=== PATIENT | female | born 1940 | race Caucasian/White ===

== ENCOUNTER 2020-10-29 11:25 | Inpatient (IN) | payer OTHER ==
[2020-10-29 11:30] VITALS: BMI 27.4
[2020-10-29] MEDS ORDERED: SODIUM CHLORIDE 1,000 ML IV SCH (12:00)
[2020-10-29 12:22] LABS: EOS % 1.9 % (0-4.5); HEMATOCRIT 39.5 % (32.4-45.2); HEMOGLOBIN 13.4 GM/dL (10.7-15.3); LYMPH % 17.8 % (8-40); MCH 27.8 pg (25.7-33.7); MCHC 33.9 g/dl (32.0-36.0); MEAN CELL VOLUME 81.9 fl (80-96); MEAN PLT VOLUME 7.7 fl (7.5-11.1); MONO % 8.2 % (3.8-10.2); NEUT % 71.1 % (42.8-82.8); PLATELET COUNT 438 K/MM3 (134-434); RBC 4.82 M/mm3 (3.60-5.2); RDW 13.6 % (11.6-15.6)
[2020-10-29] MEDS ORDERED: ACETAMINOPHEN 1000 MG/100 ML VIAL (NON FORMULARY) IVPB ONE (12:27)
[2020-10-29] MEDS ORDERED: METOCLOPRAMIDE HCL INJECTION 10 MG/2 ML VIAL IVPB ONE (12:27)
[2020-10-29 12:42] LABS: CALCIUM 10.1 mg/dL (8.5-10.1)
[2020-10-29 12:43] LABS: ALBUMIN 3.4 g/dl (3.4-5.0); BLOOD UREA NITROGEN 50.3 mg/dL (7-18); CO2 30 mmol/L (21-32); GLUCOSE,RANDOM 102 mg/dL (74-106)
[2020-10-29 12:46] LABS: CHOLESTEROL 283 mg/dL (50-200); SGOT/AST 14 U/L (15-37); SGPT/ALT 23 U/L (13-61); TRIGLYCERIDES 233 mg/dL (0-150)
[2020-10-29 12:47] LABS: BILIRUBIN,TOTAL 0.5 mg/dL (0.2-1); LDL CHOLESTEROL (ONLY SJRH) 178 mg/dL (5-100); TOT PROT 7.1 g/dl (6.4-8.2)
[2020-10-29 12:48] LABS: ALK PHOS 96 U/L (45-117)
[2020-10-29 12:49] LABS: HDL CHOLESTEROL 54 mg/dL (40-60)
[2020-10-29 12:51] LABS: ANION GAP 8 MMOL/L (8-16); CHLORIDE 100 mmol/L (98-107); POTASSIUM 3.7 mmol/L (3.5-5.1); SODIUM 137 mmol/L (136-145)
[2020-10-29] MEDS ORDERED: METOCLOPRAMIDE HCL INJECTION 10 MG/2 ML VIAL ONE (13:10)
[2020-10-29] MEDS ORDERED: ACETAMINOPHEN INJECTION 100 ML IVPB ONE (13:10)
[2020-10-29 13:31] LABS: INR 0.97 (0.83-1.09); PROTHROMBIN TIME (PATIENT) 11.8 SEC (9.7-13.0)
[2020-10-29 13:34] LABS: ACTIVATED PTT 27.6 SECONDS (25.2-36.5)
[2020-10-29 15:18] LABS: EPI CELLS 30 /uL (0-25.1); HYALINE CASTS 0 /uL (0-3.1); URINE APPEARANCE CLEAR; URINE BACTERIA 187 /uL (0-1359); URINE BILIRUBIN NEGATIVE (NEGATIVE); URINE COLOR YELLOW; URINE GLUCOSE (UA) NEGATIVE (NEGATIVE); URINE KETONE NEGATIVE (NEGATIVE); URINE LEUK ESTERASE 1+ (NEGATIVE); URINE NITRITE NEGATIVE (NEGATIVE); URINE PROTEIN NEGATIVE (NEGATIVE); URINE RBC 6 /uL (0-23.9); URINE UROBILINOGEN 0.2 mg/dL (0.2-1.0); URINE WBC 45 /uL (0-25.8)
[2020-10-29] MEDS ORDERED: CLOPIDOGREL BISULFATE 75 MG TABLET (FP) PO ONE (21:40)
[2020-10-29] MEDS ORDERED: ASPIRIN 81 MG CHEWABLE TABLETS PO ONE (21:40)
[2020-10-29] MEDS ORDERED: ASPIRIN 81 MG CHEWABLE TABLETS ONE (22:07)
[2020-10-29] MEDS ORDERED: CLOPIDOGREL BISULFATE 75 MG TABLET (FP) ONE (22:07)
[2020-10-29] MEDS ORDERED: ATORVASTATIN CA 40 MG TABLET (FP) ONE (22:07)
[2020-10-29] MEDS: ATORVASTATIN CA 40 MG TABLET (FP) PO SCH (22:19)
[2020-10-29] MEDS: SODIUM CHLORIDE 1,000 ML IV SCH (22:19)
[2020-10-29 22:46] LABS: BASO % 0.7 % (0-2.0); HEMATOCRIT 36.2 % (32.4-45.2); HEMOGLOBIN 12.1 GM/dL (10.7-15.3); LYMPH % 19.5 % (8-40); MCH 27.8 pg (25.7-33.7); MCHC 33.5 g/dl (32.0-36.0); MEAN PLT VOLUME 8.1 fl (7.5-11.1); MONO % 8.4 % (3.8-10.2); NEUT % 69.4 % (42.8-82.8); PLATELET COUNT 403 K/MM3 (134-434); RBC 4.36 M/mm3 (3.60-5.2); RDW 13.8 % (11.6-15.6)
[2020-10-29 22:54] LABS: INR 0.95 (0.83-1.09); PROTHROMBIN TIME (PATIENT) 11.7 SEC (9.7-13.0)
[2020-10-29 22:57] LABS: ACTIVATED PTT 24.5 SECONDS (25.2-36.5)
[2020-10-29 23:18] LABS: CHLORIDE 104 mmol/L (98-107); POTASSIUM 3.7 mmol/L (3.5-5.1); SODIUM 141 mmol/L (136-145)
[2020-10-29 23:20] LABS: CALCIUM 9.4 mg/dL (8.5-10.1)
[2020-10-29 23:21] LABS: ALBUMIN 3.2 g/dl (3.4-5.0); ANION GAP 8 MMOL/L (8-16); BLOOD UREA NITROGEN 48.2 mg/dL (7-18); CO2 29 mmol/L (21-32); GLUCOSE,RANDOM 100 mg/dL (74-106)
[2020-10-29 23:24] LABS: CREATININE 1.1 mg/dL (0.55-1.3); SGOT/AST 13 U/L (15-37); SGPT/ALT 20 U/L (13-61)
[2020-10-29 23:25] LABS: BILIRUBIN,TOTAL 0.5 mg/dL (0.2-1); CHOLESTEROL 249 mg/dL (50-200); TOT PROT 6.3 g/dl (6.4-8.2); TRIGLYCERIDES 169 mg/dL (0-150)
[2020-10-29 23:26] LABS: HDL CHOLESTEROL 50 mg/dL (40-60); LDL CHOLESTEROL (ONLY SJRH) 152 mg/dL (5-100)
[2020-10-29 23:27] LABS: ALK PHOS 87 U/L (45-117)
[2020-10-30 00:36] LABS: EPI CELLS 19 /uL (0-25.1); HYALINE CASTS 1 /uL (0-3.1); URINE APPEARANCE CLEAR; URINE BACTERIA 142 /uL (0-1359); URINE BILIRUBIN NEGATIVE (NEGATIVE); URINE COLOR YELLOW; URINE GLUCOSE (UA) NEGATIVE (NEGATIVE); URINE KETONE NEGATIVE (NEGATIVE); URINE LEUK ESTERASE 1+ (NEGATIVE); URINE NITRITE NEGATIVE (NEGATIVE); URINE PROTEIN NEGATIVE (NEGATIVE); URINE RBC 5 /uL (0-23.9); URINE UROBILINOGEN 0.2 mg/dL (0.2-1.0); URINE WBC 57 /uL (0-25.8)
[2020-10-30 06:59] LABS: HEMATOCRIT 36.5 % (32.4-45.2); HEMOGLOBIN 12.5 GM/dL (10.7-15.3); LYMPH % 19.6 % (8-40); MCH 28.1 pg (25.7-33.7); MCHC 34.3 g/dl (32.0-36.0); MEAN CELL VOLUME 81.8 fl (80-96); MEAN PLT VOLUME 7.9 fl (7.5-11.1); MONO % 7.1 % (3.8-10.2); NEUT % 70.3 % (42.8-82.8); PLATELET COUNT 391 K/MM3 (134-434); RBC 4.46 M/mm3 (3.60-5.2); RDW 13.8 % (11.6-15.6); WHITE BLOOD COUNT 8.2 K/mm3 (4.0-10.0)
[2020-10-30 07:19] LABS: POTASSIUM 3.8 mmol/L (3.5-5.1)
[2020-10-30 07:22] LABS: CALCIUM 9.4 mg/dL (8.5-10.1)
[2020-10-30 07:23] LABS: ALBUMIN 3.2 g/dl (3.4-5.0); BLOOD UREA NITROGEN 42.6 mg/dL (7-18); MAGNESIUM 1.7 mg/dL (1.8-2.4)
[2020-10-30 07:26] LABS: CREATININE 0.9 mg/dL (0.55-1.3); PHOSPHOROUS 3.5 mg/dL (2.5-4.9)
[2020-10-30 07:27] LABS: BILIRUBIN,TOTAL 0.5 mg/dL (0.2-1); TOT PROT 6.3 g/dl (6.4-8.2)
[2020-10-30] MEDS ORDERED: HYDROCHLOROTHIAZIDE 12.5 MG CAPSULE (FP) PO SCH (10:00)
[2020-10-30] MEDS ORDERED: ENOXAPARIN NA (PORCINE) 40 MG/0.4 ML DISP.SYRIN SQ SCH (10:00)
[2020-10-30] MEDS ORDERED: PATIENT'S OWN MEDICATION (NON-FORMULARY) (Candesartan/Hydrochlorothiazid [Candesartan-Hctz PO SCH (10:00)
[2020-10-30] MEDS ORDERED: MULTIVITAMINS (DAILY MVI) TABLET (FP) ONE (10:14)
[2020-10-30] MEDS ORDERED: CLOPIDOGREL BISULFATE 75 MG TABLET (FP) ONE (10:15)
[2020-10-30] MEDS ORDERED: METOPROLOL TARTRATE 50 MG TABLET (FP) ONE (10:15)
[2020-10-30] MEDS ORDERED: ASPIRIN 81 MG CHEWABLE TABLETS ONE (10:15)
[2020-10-30] MEDS: ASPIRIN 81 MG CHEWABLE TABLETS PO SCH (11:25)
[2020-10-30] MEDS: METOPROLOL TARTRATE 50 MG TABLET (FP) PO SCH (11:29)
[2020-10-30] MEDS: VALSARTAN 160 MG TABLET PO SCH (11:29)
[2020-10-30] MEDS: MULTIVITAMINS (DAILY MVI) TABLET (FP) PO SCH (11:31)
[2020-10-30] MEDS: CLOPIDOGREL BISULFATE 75 MG TABLET (FP) PO SCH (12:15)
[2020-10-30] MEDS ORDERED: MAGNESIUM SULF 50% (8.12 MEQ/2 ML-1 GM VIAL) IVPB ONE (14:51)
[2020-10-30] MEDS ORDERED: LORazepam 1 MG TABLET PO ONE (17:00)
[2020-10-30] MEDS: SODIUM CHLORIDE 1,000 ML IV SCH ×2 (17:18→21:20)
[2020-10-30] MEDS: ATORVASTATIN CA 40 MG TABLET (FP) PO SCH (21:18)
[2020-10-31 08:08] LABS: HEMATOCRIT 33.6 % (32.4-45.2); HEMOGLOBIN 11.4 GM/dL (10.7-15.3); MCHC 34.1 g/dl (32.0-36.0); MEAN CELL VOLUME 82.1 fl (80-96); MEAN PLT VOLUME 7.8 fl (7.5-11.1); PLATELET COUNT 384 K/MM3 (134-434); RBC 4.09 M/mm3 (3.60-5.2); RDW 13.8 % (11.6-15.6); WHITE BLOOD COUNT 7.6 K/mm3 (4.0-10.0)
[2020-10-31 08:21] LABS: POTASSIUM 3.6 mmol/L (3.5-5.1)
[2020-10-31 08:41] LABS: BLOOD UREA NITROGEN 33.6 mg/dL (7-18); CALCIUM 8.9 mg/dL (8.5-10.1); MAGNESIUM 1.8 mg/dL (1.8-2.4)
[2020-10-31 08:44] LABS: CREATININE 0.7 mg/dL (0.55-1.3); PHOSPHOROUS 2.5 mg/dL (2.5-4.9)
[2020-10-31] MEDS: CLOPIDOGREL BISULFATE 75 MG TABLET (FP) PO SCH (09:03)
[2020-10-31] MEDS: VALSARTAN 160 MG TABLET PO SCH (09:03)
[2020-10-31] MEDS: ASPIRIN 81 MG CHEWABLE TABLETS PO SCH (09:03)
[2020-10-31] MEDS: MULTIVITAMINS (DAILY MVI) TABLET (FP) PO SCH (09:04)
[2020-10-31] MEDS: METOPROLOL TARTRATE 50 MG TABLET (FP) PO SCH (09:04)
[2020-10-31] MEDS ORDERED: MAGNESIUM OXIDE 400 MG TABLET (FP) PO ONE (10:00)
[2020-10-31] MEDS: ATORVASTATIN CA 40 MG TABLET (FP) PO SCH (21:10)
[2020-11-01 06:19] VITALS: TEMP 98.2
[2020-11-01 08:03] VITALS: BP 122/53; PULSE 64
[2020-11-01 08:14] LABS: HEMATOCRIT 33.3 % (32.4-45.2); HEMOGLOBIN 11.2 GM/dL (10.7-15.3); MCH 27.8 pg (25.7-33.7); MCHC 33.6 g/dl (32.0-36.0); MEAN CELL VOLUME 82.8 fl (80-96); MEAN PLT VOLUME 8.1 fl (7.5-11.1); PLATELET COUNT 369 K/MM3 (134-434); RBC 4.02 M/mm3 (3.60-5.2); RDW 14.1 % (11.6-15.6); WHITE BLOOD COUNT 8.4 K/mm3 (4.0-10.0)
[2020-11-01 08:40] LABS: POTASSIUM 4.2 mmol/L (3.5-5.1)
[2020-11-01 08:46] LABS: CALCIUM 9.4 mg/dL (8.5-10.1)
[2020-11-01 08:47] LABS: BLOOD UREA NITROGEN 26.9 mg/dL (7-18); MAGNESIUM 1.8 mg/dL (1.8-2.4)
[2020-11-01 08:50] LABS: CREATININE 0.8 mg/dL (0.55-1.3)
[2020-11-01 08:51] LABS: PHOSPHOROUS 3.2 mg/dL (2.5-4.9)
[2020-11-01] MEDS: VALSARTAN 160 MG TABLET PO SCH (09:05)
[2020-11-01] MEDS: METOPROLOL TARTRATE 50 MG TABLET (FP) PO SCH (09:05)
[2020-11-01] MEDS: ASPIRIN 81 MG CHEWABLE TABLETS PO SCH (09:05)
[2020-11-01] MEDS: CLOPIDOGREL BISULFATE 75 MG TABLET (FP) PO SCH (09:05)
[2020-11-01] MEDS: MULTIVITAMINS (DAILY MVI) TABLET (FP) PO SCH (09:05)
== END 2020-11-01 11:31 | disposition home or self-care (01) | DRG 66 ==
LOC: JER 11:25 → JERBED 14:10 → J4W 10-30 16:09
PROVIDERS: ADMIT Internal Medicine; ATTEND Internal Medicine
DX: I63.232 Cerebral infarction due to unspecified occlusion or stenosis of left carotid arteries (principal); I10 Essential (primary) hypertension; E78.5 Hyperlipidemia, unspecified; I25.10 Atherosclerotic heart disease of native coronary artery without angina pectoris; D32.9 Benign neoplasm of meninges, unspecified; F17.210 Nicotine dependence, cigarettes, uncomplicated; R47.81 Slurred speech; R29.810 Facial weakness; R29.708 NIHSS score 8
CPT/HCPCS: 36415; 70450-TC; 70498-TC; 70551-TC; 71045-TC-FY; 80048; 80053; 80061; 81003; 82550; 83036; 83721; 83735; 84100; 84443; 84484; 85025; 85027; 85610; 85730; 86850; 86900; 86901; 93005; 93010; 93306-TC; 93880-TC; 94010; 97116-GP; 97161-GP; 99285-25; C9803; J0131; Q9967; U0003

== ENCOUNTER 2022-05-26 18:35 | Inpatient (IN) | payer OTHER ==
[2022-05-26] MEDS ORDERED: DEXAMETHASONE SOD PHOSPHATE 10 MG/1 ML VIAL IVPUSH ONE (21:14)
[2022-05-26 21:35] LABS: VENOUS BASE EXCESS -2.5 mmol/L (-2-2); VENOUS O2 SATURATION 80.1 % (70-80); VENOUS PCO2 39.7 mmHg (38-52); VENOUS PH 7.372 (7.310-7.410)
[2022-05-26 21:37] LABS: BASO % 1.4 % (0-2.0); EOS % 0.4 % (0-4.5); HEMATOCRIT 17.9 % (32.4-45.2); LYMPH % 14.1 % (8-40); MCHC 28.7 g/dl (32.0-36.0); MEAN CELL VOLUME 63.5 fl (80-96); MEAN PLT VOLUME 6.7 fl (7.5-11.1); MONO % 11.2 % (3.8-10.2); NEUT % 72.9 % (42.8-82.8); PLATELET COUNT 387 10^3/uL (134-434); RBC 2.82 M/mm3 (3.60-5.2); RDW 21.7 % (11.6-15.6); WHITE BLOOD COUNT 5.7 K/mm3 (4.0-10.0)
[2022-05-26 21:38] LABS: MCH 18.2 pg (25.7-33.7)
[2022-05-26 21:39] LABS: HEMOGLOBIN 5.1 GM/dL (10.7-15.3)
[2022-05-26] MEDS ORDERED: DEXAMETHASONE SOD PHOSPHATE 10 MG/1 ML VIAL ONE (21:52)
[2022-05-26 21:53] LABS: CHLORIDE 104 mmol/L (98-107); SODIUM 138 mmol/L (136-145)
[2022-05-26 21:55] LABS: CALCIUM 8.4 mg/dL (8.5-10.1)
[2022-05-26 21:56] LABS: ALBUMIN 2.9 g/dl (3.4-5.0); ANION GAP 11 MMOL/L (8-16); BLOOD UREA NITROGEN 40.8 mg/dL (7-18); CO2 23 mmol/L (21-32); GLUCOSE,RANDOM 97 mg/dL (74-106)
[2022-05-26 21:59] LABS: CREATININE 1.1 mg/dL (0.55-1.3); SGOT/AST 93 U/L (15-37); SGPT/ALT 114 U/L (13-61)
[2022-05-26 22:00] LABS: BILIRUBIN,TOTAL 0.6 mg/dL (0.2-1); TOT PROT 5.9 g/dl (6.4-8.2)
[2022-05-26 22:02] LABS: ALK PHOS 171 U/L (45-117)
[2022-05-26 22:04] LABS: N-TERMINAL BNP 3860.7 pg/ml (5-450)
[2022-05-26 22:22] LABS: ACTIVATED PTT 25.8 SECONDS (25.2-36.5); INR 1.32 (0.83-1.09); PROTHROMBIN TIME (PATIENT) 15.2 SEC (9.7-13.0)
[2022-05-26 22:31] LABS: ANISOCYTOSIS 3+; MACROCYTOSIS 0; OVALOCYTE 1+; TARGET CELLS 2+
[2022-05-27] MEDS ORDERED: LEVALBUTEROL HCL 0.31 MG/3 ML VIAL.NEB IH PRN (00:38)
[2022-05-27] MEDS ORDERED: FUROSEMIDE 40 MG/4 ML INJECTABLE VIAL IVPUSH ONE (00:38)
[2022-05-27] MEDS ORDERED: REMDESIVIR 200 MG in SODIUM CHLORIDE 250 ML IVPB ONE (00:38)
[2022-05-27 00:56] LABS: RETICULOCYTES 3.72 % (0.5-1.5)
[2022-05-27 01:51] LABS: IRON SERUM 11 ug/dL (50-175)
[2022-05-27 01:52] LABS: TOTAL IRON BINDING CAPACITY 474 ug/dL (250-450)
[2022-05-27] MEDS ORDERED: PANTOPRAZOLE SODIUM 40 MG VIAL IVPUSH ONE (04:50)
[2022-05-27 05:50] LABS: EPI CELLS 21 /uL (0-25.1); HYALINE CASTS 0 /uL (0-3.1); URINE APPEARANCE CLEAR; URINE BACTERIA 14 /uL (0-1359); URINE BILIRUBIN NEGATIVE (NEGATIVE); URINE COLOR YELLOW; URINE GLUCOSE (UA) NEGATIVE (NEGATIVE); URINE KETONE NEGATIVE (NEGATIVE); URINE LEUK ESTERASE 1+ (NEGATIVE); URINE NITRITE NEGATIVE (NEGATIVE); URINE PROTEIN 1+ (NEGATIVE); URINE RBC 3 /uL (0-23.9); URINE UROBILINOGEN 0.2 mg/dL (0.2-1.0); URINE WBC 18 /uL (0-25.8)
[2022-05-27] MEDS ORDERED: PANTOPRAZOLE SODIUM 40 MG VIAL ONE ×2 (07:40→10:28)
[2022-05-27 08:19] LABS: BASO % 0.6 % (0-2.0); HEMATOCRIT 27.8 % (32.4-45.2); HEMOGLOBIN 8.7 GM/dL (10.7-15.3); LYMPH % 4.4 % (8-40); MCHC 31.4 g/dl (32.0-36.0); MEAN PLT VOLUME 7.1 fl (7.5-11.1); MONO % 5.2 % (3.8-10.2); NEUT % 89.8 % (42.8-82.8); PLATELET COUNT 375 10^3/uL (134-434); RBC 3.96 M/mm3 (3.60-5.2); RDW 25.5 % (11.6-15.6); WHITE BLOOD COUNT 5.1 K/mm3 (4.0-10.0)
[2022-05-27] MEDS ORDERED: IRON SUCROSE INJECTION 200 MG in SODIUM CHLORIDE 90 ML IVPB ONE (09:06)
[2022-05-27] MEDS ORDERED: HYDROCHLOROTHIAZIDE 12.5 MG CAPSULE (FP) PO SCH (10:00)
[2022-05-27] MEDS ORDERED: PATIENT'S OWN MEDICATION (NON-FORMULARY) (Candesartan/Hydrochlorothiazid [Candesartan-Hctz PO SCH (10:00)
[2022-05-27] MEDS ORDERED: HYDROCHLOROTHIAZIDE 25 MG TABLET (FP) ONE (10:25)
[2022-05-27] MEDS ORDERED: VALSARTAN 80 MG TABLET ONE (10:26)
[2022-05-27] MEDS ORDERED: DEXAMETHASONE SOD PHOSPHATE 10 MG/1 ML VIAL ONE (10:26)
[2022-05-27] MEDS ORDERED: amLODIPine BESYLATE 2.5 MG TABLET (FP) ONE (10:26)
[2022-05-27] MEDS ORDERED: METOPROLOL TARTRATE 50 MG TABLET (FP) ONE (10:26)
[2022-05-27] MEDS ORDERED: CEFTRIAXONE 1 GM/50 ML BAG ONE (10:27)
[2022-05-27] MEDS: DEXAMETHASONE SOD PHOSPHATE 10 MG/1 ML VIAL IVPUSH SCH (10:44)
[2022-05-27] MEDS: CEFTRIAXONE 1 GM in DEXTROSE 5%-WATER - 50 ML IVPB SCH (10:45)
[2022-05-27] MEDS: amLODIPine BESYLATE 2.5 MG TABLET (FP) PO SCH (10:45)
[2022-05-27] MEDS: VALSARTAN 160 MG TABLET PO SCH (10:45)
[2022-05-27] MEDS: METOPROLOL TARTRATE 50 MG TABLET (FP) PO SCH (10:45)
[2022-05-27] MEDS: PANTOPRAZOLE SODIUM 40 MG VIAL IVPUSH SCH ×2 (10:45→22:09)
[2022-05-27 10:59] LABS: ALBUMIN 3.2 g/dl (3.4-5.0); BLOOD UREA NITROGEN 36.8 mg/dL (7-18); CALCIUM 8.8 mg/dL (8.5-10.1); MAGNESIUM 1.9 mg/dL (1.8-2.4)
[2022-05-27 11:02] LABS: CREATININE 1.1 mg/dL (0.55-1.3); PHOSPHOROUS 3.6 mg/dL (2.5-4.9)
[2022-05-27 11:04] LABS: BILIRUBIN,TOTAL 1.8 mg/dL (0.2-1); TOT PROT 6.3 g/dl (6.4-8.2)
[2022-05-27 12:41] LABS: BILIRUBIN,DIRECT 0.6 mg/dL (0.0-0.2)
[2022-05-27] MEDS: ATORVASTATIN CA 40 MG TABLET (FP) PO SCH (22:09)
[2022-05-27 23:16] VITALS: BMI 27.1
[2022-05-27] MEDS ORDERED: diphenhydrAMINE HCL 25 MG CAPSULE (FP) PO ONE (23:51)
[2022-05-28 07:50] LABS: BASO % 0.3 % (0-2.0); HEMATOCRIT 26.8 % (32.4-45.2); HEMOGLOBIN 8.2 GM/dL (10.7-15.3); LYMPH % 5.5 % (8-40); MCH 21.3 pg (25.7-33.7); MCHC 30.4 g/dl (32.0-36.0); MEAN CELL VOLUME 70.1 fl (80-96); MEAN PLT VOLUME 7.9 fl (7.5-11.1); MONO % 9.4 % (3.8-10.2); NEUT % 84.8 % (42.8-82.8); PLATELET COUNT 352 10^3/uL (134-434); RBC 3.83 M/mm3 (3.60-5.2); RDW 25.2 % (11.6-15.6); WHITE BLOOD COUNT 7.7 K/mm3 (4.0-10.0)
[2022-05-28 08:35] LABS: ALBUMIN 2.7 g/dl (3.4-5.0); CALCIUM 8.6 mg/dL (8.5-10.1)
[2022-05-28 08:36] LABS: MAGNESIUM 1.9 mg/dL (1.8-2.4)
[2022-05-28 08:39] LABS: BILIRUBIN,TOTAL 0.7 mg/dL (0.2-1); TOT PROT 5.4 g/dl (6.4-8.2)
[2022-05-28] MEDS: MULTIVITAMINS (DAILY MVI) TABLET (FP) PO SCH (10:27)
[2022-05-28] MEDS: METOPROLOL TARTRATE 50 MG TABLET (FP) PO SCH (10:27)
[2022-05-28] MEDS: CEFTRIAXONE 1 GM in DEXTROSE 5%-WATER - 50 ML IVPB SCH (10:27)
[2022-05-28] MEDS: VALSARTAN 160 MG TABLET PO SCH (10:27)
[2022-05-28] MEDS: PANTOPRAZOLE SODIUM 40 MG VIAL IVPUSH SCH ×2 (10:27→21:35)
[2022-05-28] MEDS: amLODIPine BESYLATE 2.5 MG TABLET (FP) PO SCH (10:27)
[2022-05-28] MEDS: DEXAMETHASONE SOD PHOSPHATE 10 MG/1 ML VIAL IVPUSH SCH (10:27)
[2022-05-28] MEDS ORDERED: IRON SUCROSE INJECTION 200 MG in SODIUM CHLORIDE 90 ML IVPB ONE (14:00)
[2022-05-28] MEDS: diphenhydrAMINE HCL 25 MG CAPSULE (FP) PO PRN (17:44)
[2022-05-28] MEDS: ATORVASTATIN CA 40 MG TABLET (FP) PO SCH (21:35)
[2022-05-29 07:19] LABS: BASO % 0.1 % (0-2.0); HEMATOCRIT 27.9 % (32.4-45.2); HEMOGLOBIN 8.3 GM/dL (10.7-15.3); LYMPH % 6.6 % (8-40); MCH 21.2 pg (25.7-33.7); MCHC 29.9 g/dl (32.0-36.0); MEAN CELL VOLUME 70.8 fl (80-96); MEAN PLT VOLUME 8.1 fl (7.5-11.1); MONO % 8.3 % (3.8-10.2); PLATELET COUNT 372 10^3/uL (134-434); RBC 3.93 M/mm3 (3.60-5.2); RDW 26.3 % (11.6-15.6); WHITE BLOOD COUNT 8.2 K/mm3 (4.0-10.0)
[2022-05-29 07:44] LABS: ALBUMIN 2.8 g/dl (3.4-5.0); CALCIUM 8.9 mg/dL (8.5-10.1)
[2022-05-29 07:46] LABS: MAGNESIUM 1.9 mg/dL (1.8-2.4)
[2022-05-29 07:48] LABS: BILIRUBIN,TOTAL 0.4 mg/dL (0.2-1); CREATININE 1.2 mg/dL (0.55-1.3)
[2022-05-29 07:49] LABS: TOT PROT 5.6 g/dl (6.4-8.2)
[2022-05-29] MEDS: CEFTRIAXONE 1 GM in DEXTROSE 5%-WATER - 50 ML IVPB SCH (10:19)
[2022-05-29] MEDS: VALSARTAN 160 MG TABLET PO SCH (10:19)
[2022-05-29] MEDS: PANTOPRAZOLE SODIUM 40 MG VIAL IVPUSH SCH ×3 (10:19→21:19)
[2022-05-29] MEDS: DEXAMETHASONE SOD PHOSPHATE 10 MG/1 ML VIAL IVPUSH SCH (10:19)
[2022-05-29] MEDS: MULTIVITAMINS (DAILY MVI) TABLET (FP) PO SCH (10:20)
[2022-05-29] MEDS: amLODIPine BESYLATE 2.5 MG TABLET (FP) PO SCH (10:20)
[2022-05-29] MEDS: METOPROLOL TARTRATE 50 MG TABLET (FP) PO SCH (10:20)
[2022-05-29] MEDS: guaiFENesin 200 MG/10 ML 10 ML UNIT-DOSE CUPS PO PRN ×2 (13:16→20:44)
[2022-05-29] MEDS: ATORVASTATIN CA 40 MG TABLET (FP) PO SCH ×2 (20:44→21:19)
[2022-05-30 07:31] LABS: BASO % 0.1 % (0-2.0); EOS % 0.1 % (0-4.5); HEMATOCRIT 27.2 % (32.4-45.2); HEMOGLOBIN 8.4 GM/dL (10.7-15.3); LYMPH % 7.6 % (8-40); MCH 22.1 pg (25.7-33.7); MCHC 30.9 g/dl (32.0-36.0); MEAN CELL VOLUME 71.4 fl (80-96); MEAN PLT VOLUME 8.2 fl (7.5-11.1); MONO % 8.3 % (3.8-10.2); NEUT % 83.9 % (42.8-82.8); PLATELET COUNT 330 10^3/uL (134-434); RDW 27.2 % (11.6-15.6); WHITE BLOOD COUNT 8.6 K/mm3 (4.0-10.0)
[2022-05-30 07:55] LABS: CALCIUM 8.8 mg/dL (8.5-10.1)
[2022-05-30 07:56] LABS: ALBUMIN 2.9 g/dl (3.4-5.0); BLOOD UREA NITROGEN 40.6 mg/dL (7-18); MAGNESIUM 1.8 mg/dL (1.8-2.4)
[2022-05-30 07:59] LABS: CREATININE 1.1 mg/dL (0.55-1.3)
[2022-05-30 08:00] LABS: BILIRUBIN,TOTAL 0.4 mg/dL (0.2-1); TOT PROT 5.5 g/dl (6.4-8.2)
[2022-05-30 09:51] LABS: ANISOCYTOSIS 3+; MACROCYTOSIS 0; OVALOCYTE 2+
[2022-05-30] MEDS: PANTOPRAZOLE SODIUM 40 MG VIAL IVPUSH SCH ×2 (10:56→22:26)
[2022-05-30] MEDS: DEXAMETHASONE SOD PHOSPHATE 10 MG/1 ML VIAL IVPUSH SCH (10:56)
[2022-05-30] MEDS: METOPROLOL TARTRATE 50 MG TABLET (FP) PO SCH (10:57)
[2022-05-30] MEDS: VALSARTAN 160 MG TABLET PO SCH (10:57)
[2022-05-30] MEDS: CEFTRIAXONE 1 GM in DEXTROSE 5%-WATER - 50 ML IVPB SCH (10:57)
[2022-05-30] MEDS: MULTIVITAMINS (DAILY MVI) TABLET (FP) PO SCH (10:57)
[2022-05-30] MEDS: amLODIPine BESYLATE 2.5 MG TABLET (FP) PO SCH (10:57)
[2022-05-30] MEDS: guaiFENesin 200 MG/10 ML 10 ML UNIT-DOSE CUPS PO PRN ×2 (14:22→22:26)
[2022-05-30] MEDS: diphenhydrAMINE HCL 25 MG CAPSULE (FP) PO PRN (22:26)
[2022-05-30] MEDS: ATORVASTATIN CA 40 MG TABLET (FP) PO SCH (22:26)
[2022-05-31] MEDS: CEFTRIAXONE 1 GM in DEXTROSE 5%-WATER - 50 ML IVPB SCH (09:29)
[2022-05-31] MEDS: amLODIPine BESYLATE 2.5 MG TABLET (FP) PO SCH (09:29)
[2022-05-31] MEDS: VALSARTAN 160 MG TABLET PO SCH (09:29)
[2022-05-31] MEDS: DEXAMETHASONE SOD PHOSPHATE 10 MG/1 ML VIAL IVPUSH SCH (09:29)
[2022-05-31] MEDS: METOPROLOL TARTRATE 50 MG TABLET (FP) PO SCH (09:29)
[2022-05-31] MEDS: PANTOPRAZOLE SODIUM 40 MG VIAL IVPUSH SCH ×2 (09:29→21:08)
[2022-05-31] MEDS: MULTIVITAMINS (DAILY MVI) TABLET (FP) PO SCH (09:29)
[2022-05-31] MEDS: ATORVASTATIN CA 40 MG TABLET (FP) PO SCH (21:08)
[2022-05-31] MEDS: diphenhydrAMINE HCL 25 MG CAPSULE (FP) PO PRN (21:12)
[2022-05-31] MEDS: FERROUS SO4 325 MG TABLET (FP) PO SCH (22:29)
[2022-06-01 07:45] LABS: CHLORIDE 106 mmol/L (98-107); SODIUM 141 mmol/L (136-145)
[2022-06-01 07:49] LABS: CALCIUM 8.9 mg/dL (8.5-10.1)
[2022-06-01 07:50] LABS: ALBUMIN 3.1 g/dl (3.4-5.0); ANION GAP 8 MMOL/L (8-16); BLOOD UREA NITROGEN 27.3 mg/dL (7-18); CO2 27 mmol/L (21-32); GLUCOSE,RANDOM 77 mg/dL (74-106); MAGNESIUM 1.9 mg/dL (1.8-2.4)
[2022-06-01 07:53] LABS: BASO % 0.1 % (0-2.0); CREATININE 0.9 mg/dL (0.55-1.3); EOS % 0.7 % (0-4.5); HEMATOCRIT 32.1 % (32.4-45.2); HEMOGLOBIN 9.7 GM/dL (10.7-15.3); LYMPH % 9.7 % (8-40); MCH 22.6 pg (25.7-33.7); MCHC 30.3 g/dl (32.0-36.0); MEAN CELL VOLUME 74.6 fl (80-96); MEAN PLT VOLUME 8.2 fl (7.5-11.1); MONO % 6.5 % (3.8-10.2); PLATELET COUNT 408 10^3/uL (134-434); RDW 28.5 % (11.6-15.6); SGOT/AST 17 U/L (15-37); SGPT/ALT 59 U/L (13-61); WHITE BLOOD COUNT 10.4 K/mm3 (4.0-10.0)
[2022-06-01 07:54] LABS: BILIRUBIN,TOTAL 0.6 mg/dL (0.2-1); TOT PROT 5.9 g/dl (6.4-8.2)
[2022-06-01 07:56] LABS: ALK PHOS 116 U/L (45-117)
[2022-06-01] MEDS: DEXAMETHASONE SOD PHOSPHATE 10 MG/1 ML VIAL IVPUSH SCH (10:54)
[2022-06-01] MEDS: METOPROLOL TARTRATE 50 MG TABLET (FP) PO SCH (10:55)
[2022-06-01] MEDS: amLODIPine BESYLATE 2.5 MG TABLET (FP) PO SCH (10:55)
[2022-06-01] MEDS: VALSARTAN 160 MG TABLET PO SCH (10:55)
[2022-06-01] MEDS: MULTIVITAMINS (DAILY MVI) TABLET (FP) PO SCH (10:55)
[2022-06-01] MEDS: ASCORBIC ACID 250 MG TABLET (FP) PO SCH (10:55)
[2022-06-01] MEDS: FERROUS SO4 325 MG TABLET (FP) PO SCH ×2 (10:55→22:23)
[2022-06-01] MEDS: guaiFENesin 200 MG/10 ML 10 ML UNIT-DOSE CUPS PO PRN (10:55)
[2022-06-01] MEDS: PANTOPRAZOLE SODIUM 40 MG VIAL IVPUSH SCH (10:55)
[2022-06-01] MEDS ORDERED: ACETAMINOPHEN 325 MG TABLET (FP) PO PRN (11:09)
[2022-06-01] MEDS ORDERED: IRON SUCROSE INJECTION 200 MG in SODIUM CHLORIDE 90 ML IVPB ONE (12:00)
[2022-06-01] MEDS: diphenhydrAMINE HCL 25 MG CAPSULE (FP) PO PRN (12:42)
[2022-06-01 18:53] VITALS: RESP 18
[2022-06-01] MEDS: ATORVASTATIN CA 40 MG TABLET (FP) PO SCH (22:23)
[2022-06-02] MEDS ORDERED: PANTOPRAZOLE 40 MG TABLET PO SCH (10:00)
[2022-06-02] MEDS ORDERED: DEXAMETHASONE 4 MG TABLET (FP) PO SCH (10:00)
[2022-06-02] MEDS: MULTIVITAMINS (DAILY MVI) TABLET (FP) PO SCH (10:24)
[2022-06-02] MEDS: VALSARTAN 160 MG TABLET PO SCH (10:24)
[2022-06-02] MEDS: amLODIPine BESYLATE 2.5 MG TABLET (FP) PO SCH (10:24)
[2022-06-02] MEDS: METOPROLOL TARTRATE 50 MG TABLET (FP) PO SCH (10:24)
[2022-06-02] MEDS: FERROUS SO4 325 MG TABLET (FP) PO SCH (10:25)
[2022-06-02] MEDS: ASCORBIC ACID 250 MG TABLET (FP) PO SCH (10:25)
[2022-06-02] MEDS: POLYETHYLENE GLYCOL (HEALTHYLAX) 3350 17 GM PACKET PO SCH ×2 (10:25→10:46)
[2022-06-02 10:52] VITALS: BP 152/67; PULSE 72; TEMP 98.8
== END 2022-06-02 18:11 | disposition home health service (06) | DRG 377 ==
LOC: JER 18:35 → JERBED 23:06 → J4W 05-27 19:05
PROVIDERS: ADMIT Internal Medicine; ATTEND Nurse Practitioner Acute Care
PROC: 30233N1 Transfusion of Nonautologous Red Blood Cells into Peripheral Vein, Percutaneous Approach (ICD-10-PCS; principal; 2022-05-26)
PROC: XW033E5 Introduction of Remdesivir Anti-infective into Peripheral Vein, Percutaneous Approach, New Technology Group 5 (ICD-10-PCS; 2022-05-27)
PROC: 3E0333Z Introduction of Anti-inflammatory into Peripheral Vein, Percutaneous Approach (ICD-10-PCS; 2022-05-27)
PROC: 0DB68ZX Excision of Stomach, Via Natural or Artificial Opening Endoscopic, Diagnostic (ICD-10-PCS; 2022-05-31)
PROC: 0W3P8ZZ Control Bleeding in Gastrointestinal Tract, Via Natural or Artificial Opening Endoscopic (ICD-10-PCS; 2022-05-31)
DX: K31.811 Angiodysplasia of stomach and duodenum with bleeding (principal); U07.1 COVID-19; D68.32 Hemorrhagic disorder due to extrinsic circulating anticoagulants; I24.8 Other forms of acute ischemic heart disease; J95.84 Transfusion-related acute lung injury (TRALI); E78.00 Pure hypercholesterolemia, unspecified; I10 Essential (primary) hypertension; H40.9 Unspecified glaucoma; D50.0 Iron deficiency anemia secondary to blood loss (chronic); I25.2 Old myocardial infarction; I25.10 Atherosclerotic heart disease of native coronary artery without angina pectoris; K29.70 Gastritis, unspecified, without bleeding; D32.9 Benign neoplasm of meninges, unspecified; R68.3 Clubbing of fingers; R91.8 Other nonspecific abnormal finding of lung field; R06.89 Other abnormalities of breathing; Z86.73 Personal history of transient ischemic attack (TIA), and cerebral infarction without residual deficits; Z95.5 Presence of coronary angioplasty implant and graft
CPT/HCPCS: 0241U-QW; 36415; 36430; 71045-TC-FY; 71250-TC; 74177-TC; 76705-TC; 80053; 81003; 82248; 82272; 82550; 82728; 82803; 82977; 83540; 83550; 83735; 83880; 84100; 84466; 84484; 85025; 85045; 85379; 85610; 85730; 86140; 86704; 86709; 86803; 86850; 86900; 86901; 86922; 87340; 88305-TC; 93005; 93010; 97116-GP; 97161-GP; 99285-25; C9399; C9803-CS; J1100; J1756; P9058; Q9967; U0003; U0005

== ENCOUNTER 2023-12-09 17:00 | Inpatient (IN) | payer OTHER ==
[2023-12-09 18:01] LABS: VENOUS BASE EXCESS -0.1 mmol/L (-2-2); VENOUS O2 SATURATION 39.6 % (70-80); VENOUS PCO2 41.8 mmHg (38-52); VENOUS PH 7.392 (7.310-7.410)
[2023-12-09 18:05] LABS: HEMATOCRIT 38.5 % (32.4-45.2); HEMOGLOBIN 12.7 GM/dL (10.7-15.3); MCH 26.2 pg (25.7-33.7); MEAN CELL VOLUME 79.4 fl (80-96); MEAN PLT VOLUME 6.5 fl (7.5-11.1); PLATELET COUNT 245 10^3/uL (134-434); RBC 4.85 M/mm3 (3.60-5.2); RDW 18.1 % (11.6-15.6); WHITE BLOOD COUNT 6.5 K/mm3 (4.0-10.0)
[2023-12-09 18:14] LABS: INR 1.04 (0.83-1.09); PROTHROMBIN TIME (PATIENT) 12.1 SEC (9.7-13.0)
[2023-12-09 18:17] LABS: ACTIVATED PTT 20.7 SECONDS (25.2-36.5)
[2023-12-09 18:21] LABS: POTASSIUM 4.2 mmol/L (3.5-5.1)
[2023-12-09 18:23] LABS: ALBUMIN 3.1 g/dl (3.4-5.0); CALCIUM 9.7 mg/dL (8.5-10.1)
[2023-12-09 18:24] LABS: BLOOD UREA NITROGEN 51.6 mg/dL (7-18)
[2023-12-09 18:26] LABS: CREATININE 1.4 mg/dL (0.55-1.3)
[2023-12-09 18:28] LABS: BILIRUBIN,TOTAL 0.5 mg/dL (0.2-1); TOT PROT 6.7 g/dl (6.4-8.2)
[2023-12-09 18:31] LABS: N-TERMINAL BNP 1002.3 pg/ml (5-450)
[2023-12-09 20:12] LABS: ANISOCYTOSIS 2+; MACROCYTOSIS 1+; OVALOCYTE 1+
[2023-12-09 20:34] LABS: PLATELET ESTIMATE ADEQUATE
[2023-12-09] MEDS ORDERED: MAGNESIUM SULFATE IN WATER 2 GM/50 ML IVPB IVPB ONE (21:21)
[2023-12-09] MEDS: SODIUM CHLORIDE 1,000 ML IV STA (21:39)
[2023-12-09] MEDS: MAGNESIUM 2GM/50ML STERILE WATER IVPB IVPB ONE (22:47)
[2023-12-10 00:50] VITALS: BMI 22.1
[2023-12-10 06:53] LABS: HEMATOCRIT 37.1 % (32.4-45.2); HEMOGLOBIN 12.2 GM/dL (10.7-15.3); MCHC 32.8 g/dl (32.0-36.0); MEAN CELL VOLUME 79.4 fl (80-96); MEAN PLT VOLUME 6.7 fl (7.5-11.1); PLATELET COUNT 235 10^3/uL (134-434); RBC 4.67 M/mm3 (3.60-5.2); RDW 18.3 % (11.6-15.6); WHITE BLOOD COUNT 6.3 K/mm3 (4.0-10.0)
[2023-12-10 07:32] LABS: POTASSIUM 4.9 mmol/L (3.5-5.1)
[2023-12-10 07:34] LABS: CALCIUM 9.9 mg/dL (8.5-10.1)
[2023-12-10 07:35] LABS: ALBUMIN 3.1 g/dl (3.4-5.0); BLOOD UREA NITROGEN 51.1 mg/dL (7-18); MAGNESIUM 2.3 mg/dL (1.8-2.4)
[2023-12-10 07:38] LABS: CREATININE 1.2 mg/dL (0.55-1.3); PHOSPHOROUS 3.2 mg/dL (2.5-4.9)
[2023-12-10 07:39] LABS: TOT PROT 6.8 g/dl (6.4-8.2)
[2023-12-10 07:40] LABS: BILIRUBIN,TOTAL 0.5 mg/dL (0.2-1)
[2023-12-10] MEDS ORDERED: ALBUTEROL SO4 2.5/IPRATROPIUM 0.5 INH SOL 3 ML VIAL.NEB. NEB PRN (08:50)
[2023-12-10] MEDS: ASPIRIN 81 MG CHEWABLE TABLETS PO SCH (09:40)
[2023-12-10] MEDS ORDERED: ALBUTEROL SO4 0.083% IH SOL 2.5 MG/3 ML VIAL.NEB. NEB PRN (12:13)
[2023-12-10] MEDS: FLUTICASONE/UMECLIDIN/VILANTER(100-62.5-25 TRELEGY ELLIPTA) INAHLER IH SCH (13:15)
[2023-12-10] MEDS: ATORVASTATIN CA 40 MG TABLET (FP) PO SCH (22:07)
[2023-12-11 07:21] LABS: HEMATOCRIT 34.7 % (32.4-45.2); HEMOGLOBIN 11.5 GM/dL (10.7-15.3); MCH 26.4 pg (25.7-33.7); MCHC 33.3 g/dl (32.0-36.0); MEAN CELL VOLUME 79.4 fl (80-96); MEAN PLT VOLUME 6.9 fl (7.5-11.1); PLATELET COUNT 239 10^3/uL (134-434); RBC 4.37 M/mm3 (3.60-5.2); RDW 18.2 % (11.6-15.6); WHITE BLOOD COUNT 7.1 K/mm3 (4.0-10.0)
[2023-12-11 08:11] LABS: POTASSIUM 3.8 mmol/L (3.5-5.1)
[2023-12-11 08:13] LABS: CALCIUM 9.7 mg/dL (8.5-10.1)
[2023-12-11 08:14] LABS: BLOOD UREA NITROGEN 60.6 mg/dL (7-18)
[2023-12-11 08:16] LABS: CREATININE 1.3 mg/dL (0.55-1.3)
[2023-12-11 08:18] LABS: BILIRUBIN,TOTAL 0.4 mg/dL (0.2-1); TOT PROT 6.5 g/dl (6.4-8.2)
[2023-12-11 10:16] LABS: ANISOCYTOSIS 0; HELMET CELLS 0; HOWELL-JOLLY BODIES 0; MACROCYTOSIS 0; OVALOCYTE 0; ROULEAU 0; SICKELED CELLS 0; TARGET CELLS 0; TEAR DROP CELLS 0; TOXIC GRANULATION 0
[2023-12-11] MEDS ORDERED: ATORVASTATIN CA 20 MG TABLET (FP) ONE (20:54)
[2023-12-12] MEDS: DEXTROSE 5%-NORMAL SALINE 1,000 ML IV SCH (12:00)
[2023-12-12] MEDS ORDERED: ATORVASTATIN CA 20 MG TABLET (FP) ONE (21:14)
[2023-12-13 07:20] LABS: BASO % 0.3 % (0-2.0); EOS % 1.1 % (0-4.5); HEMATOCRIT 35.5 % (32.4-45.2); HEMOGLOBIN 11.8 GM/dL (10.7-15.3); LYMPH % 13.8 % (8-40); MCH 26.3 pg (25.7-33.7); MCHC 33.2 g/dl (32.0-36.0); MEAN CELL VOLUME 79.3 fl (80-96); MONO % 7.6 % (3.8-10.2); NEUT % 77.2 % (42.8-82.8); PLATELET COUNT 235 10^3/uL (134-434); RBC 4.48 M/mm3 (3.60-5.2); RDW 18.2 % (11.6-15.6); WHITE BLOOD COUNT 7.5 K/mm3 (4.0-10.0)
[2023-12-13 07:40] LABS: POTASSIUM 3.6 mmol/L (3.5-5.1)
[2023-12-13 07:47] LABS: CALCIUM 10.2 mg/dL (8.5-10.1)
[2023-12-13 07:48] LABS: MAGNESIUM 1.7 mg/dL (1.8-2.4)
[2023-12-13 07:49] LABS: BLOOD UREA NITROGEN 58.2 mg/dL (7-18); PHOSPHOROUS 2.7 mg/dL (2.5-4.9)
[2023-12-13 07:51] LABS: BILIRUBIN,TOTAL 0.5 mg/dL (0.2-1); TOT PROT 6.3 g/dl (6.4-8.2)
[2023-12-13 07:52] LABS: CREATININE 1.1 mg/dL (0.55-1.3)
[2023-12-13 08:39] LABS: ANISOCYTOSIS 3+; MACROCYTOSIS 0
[2023-12-13] MEDS: MAGNESIUM OXIDE 400 MG TABLET (FP) PO ONE (12:07)
[2023-12-13] MEDS: MAGNESIUM SULF 50% (8.12 MEQ/2 ML-1 GM VIAL) IVPB ONE (12:14)
[2023-12-13] MEDS: ALPRAZolam 0.25 MG TABLET PO PRN (21:30)
[2023-12-14 15:23] VITALS: BP 111/53; PULSE 90; RESP 21; TEMP 96.9
[2023-12-14] MEDS ORDERED: ALPRAZolam 0.25 MG TABLET PO PRN (16:38)
[2023-12-14] MEDS ORDERED: LATANOPROST 0.005% OPHTH SOLN 2.5ML BOTTLE OU SCH ×3 (16:39→22:00)
== END 2023-12-14 19:39 | disposition home or self-care (01) | DRG 181 ==
LOC: JER 17:00 → JERBED 19:31 → OBSVTOIN 23:38 → J4W 12-10 00:06
PROVIDERS: ADMIT Internal Medicine; ATTEND Internal Medicine
DX: C34.31 Malignant neoplasm of lower lobe, right bronchus or lung (principal); C78.7 Secondary malignant neoplasm of liver and intrahepatic bile duct; J44.1 Chronic obstructive pulmonary disease with (acute) exacerbation; J84.9 Interstitial pulmonary disease, unspecified; N17.9 Acute kidney failure, unspecified; C79.71 Secondary malignant neoplasm of right adrenal gland; I10 Essential (primary) hypertension; I50.9 Heart failure, unspecified; D64.9 Anemia, unspecified; R63.4 Abnormal weight loss; I25.10 Atherosclerotic heart disease of native coronary artery without angina pectoris; R06.02 Shortness of breath; R74.01 Elevation of levels of liver transaminase levels; E83.42 Hypomagnesemia; R06.09 Other forms of dyspnea; F17.210 Nicotine dependence, cigarettes, uncomplicated; Z95.5 Presence of coronary angioplasty implant and graft
CPT/HCPCS: 0241U-QW; 36415; 71045-TC-FY; 71250-TC; 72128-TC; 72156-TC; 72157-TC; 72158-TC; 80053; 82803; 83735; 83880; 84100; 84484; 85025; 85027; 85379; 85610; 85730; 93005; 93010; 93306-TC; 94761; 97116-GP; 97161-GP; 99285-25; G0378

== ENCOUNTER 2023-12-22 04:14 | Day surgery (SDC) | payer OTHER ==
[2023-12-21 11:02] VITALS: BMI 21.7
[2023-12-22] MEDS ORDERED: FENTANYL CITRATE/PF 50 MCG/ML VIAL ONE (09:55)
[2023-12-22 12:38] VITALS: RESP 22
[2023-12-22 15:15] VITALS: BP 122/56; PULSE 88; TEMP 97.4
== END 2023-12-22 15:15 | disposition home or self-care (01) ==
LOC: JRADIR 04:14
PROVIDERS: ATTEND Internal Medicine Pulmonary Disease
PROC: 0BBF3ZX Excision of Right Lower Lung Lobe, Percutaneous Approach, Diagnostic (ICD-10-PCS; principal; 2023-12-22)
DX: R91.8 Other nonspecific abnormal finding of lung field (principal)
CPT/HCPCS: 32408; 71045-TC-FY; 77012-TC; 88305-TC; 88341-TC; 88342-TC

== ENCOUNTER 2023-12-30 16:20 | Inpatient (IN) | payer OTHER ==
[2023-12-30 18:38] LABS: HEMOGLOBIN 11.9 GM/dL (10.7-15.3); MCH 26.8 pg (25.7-33.7); MCHC 32.9 g/dl (32.0-36.0); MEAN CELL VOLUME 81.4 fl (80-96); MEAN PLT VOLUME 6.5 fl (7.5-11.1); PLATELET COUNT 153 10^3/uL (134-434); RBC 4.43 M/mm3 (3.60-5.2); RDW 19.2 % (11.6-15.6); WHITE BLOOD COUNT 6.5 K/mm3 (4.0-10.0)
[2023-12-30 18:44] LABS: INR 1.02 (0.83-1.09); PROTHROMBIN TIME (PATIENT) 11.5 SEC (9.7-13.0)
[2023-12-30 18:47] LABS: ACTIVATED PTT 21.7 SECONDS (25.2-36.5)
[2023-12-30 18:58] LABS: POTASSIUM 3.1 mmol/L (3.5-5.1)
[2023-12-30 19:00] LABS: CALCIUM 8.9 mg/dL (8.5-10.1)
[2023-12-30 19:01] LABS: ALBUMIN 2.7 g/dl (3.4-5.0); BLOOD UREA NITROGEN 31.1 mg/dL (7-18)
[2023-12-30 19:04] LABS: CREATININE 0.8 mg/dL (0.55-1.3)
[2023-12-30 19:06] LABS: TOT PROT 5.6 g/dl (6.4-8.2)
[2023-12-30 19:14] LABS: ANISOCYTOSIS 2+; OVALOCYTE 1+; TEAR DROP CELLS 1+
[2023-12-30 19:19] LABS: LACTIC ACID 2.2 mmol/L (0.4-2.0)
[2023-12-30 19:20] LABS: PLATELET ESTIMATE ADEQUATE
[2023-12-30] MEDS: SODIUM CHLORIDE 0.9% 500 ML INFUS.BAG IV ONE (20:31)
[2023-12-30 23:19] LABS: CHLORIDE 112 mmol/L (98-107); SODIUM 146 mmol/L (136-145)
[2023-12-30 23:20] LABS: CALCIUM 8.6 mg/dL (8.5-10.1); CO2 27 mmol/L (21-32); GLUCOSE,RANDOM 92 mg/dL (74-106)
[2023-12-30 23:24] LABS: ANION GAP 8 mmol/L (4-13); CREATININE 0.8 mg/dL (0.55-1.3); POTASSIUM 2.8 mmol/L (3.5-5.1)
[2023-12-30] MEDS ORDERED: POTASSIUM CHLORIDE TABS 20 MEQ TABLET.ER (FP) PO ONE (23:47)
[2023-12-30] MEDS ORDERED: CEFTRIAXONE 1 GM/50 ML BAG ONE (23:47)
[2023-12-30] MEDS ORDERED: POTASSIUM CHLORIDE ORAL LIQUID 20 MEQ/15 ML ONE (23:48)
[2023-12-31] MEDS ORDERED: AZITHROMYCIN IVPB 500 MG/250 ML BAG IVPB ONE (00:01)
[2023-12-31] MEDS: AZITHROMYCIN IVPB 500 MG in DEXTROSE 5%-WATER - 250 ML IVPB ONE (00:09)
[2023-12-31] MEDS: POTASSIUM CHLORIDE ORAL LIQUID 20 MEQ/15 ML PO ONE (00:10)
[2023-12-31] MEDS ORDERED: KCL 10 MEQ IVPB 20 MEQ/200 ML INFUS.BAG IVPB ONE (00:28)
[2023-12-31] MEDS: POTASSIUM CHLORIDE TABS 20 MEQ TABLET.ER (FP) PO ONE (00:30)
[2023-12-31] MEDS: KCL 10 MEQ IVPB 10 MEQ/100 ML INFUS.BAG IVPB SCH ×2 (01:10→10:59)
[2023-12-31] MEDS: SODIUM CHLORIDE 0.9% 500 ML INFUS.BAG IV ONE (01:10)
[2023-12-31 03:21] LABS: MAGNESIUM 1.5 mg/dL (1.8-2.4)
[2023-12-31] MEDS: MAGNESIUM 1GM/D5W 100ML - 100 ML IVPB IVPB ONE (06:21)
[2023-12-31 07:06] LABS: HEMATOCRIT 33.4 % (32.4-45.2); HEMOGLOBIN 11.1 GM/dL (10.7-15.3); MCH 27.5 pg (25.7-33.7); MCHC 33.3 g/dl (32.0-36.0); MEAN CELL VOLUME 82.6 fl (80-96); MEAN PLT VOLUME 6.7 fl (7.5-11.1); PLATELET COUNT 139 10^3/uL (134-434); RBC 4.04 M/mm3 (3.60-5.2); RDW 19.5 % (11.6-15.6); WHITE BLOOD COUNT 6.9 K/mm3 (4.0-10.0)
[2023-12-31 07:37] LABS: MAGNESIUM 1.6 mg/dL (1.8-2.4)
[2023-12-31 07:41] LABS: PHOSPHOROUS 2.7 mg/dL (2.5-4.9)
[2023-12-31] MEDS: ASPIRIN COATED 81 MG TABLET.EC PO SCH (09:35)
[2023-12-31] MEDS: VALSARTAN 40 MG TABLET PO SCH (09:36)
[2023-12-31] MEDS: CEFTRIAXONE 1 GM in DEXTROSE 5%-WATER - 50 ML IVPB SCH (09:36)
[2023-12-31] MEDS: AZITHROMYCIN 250 MG TABLET PO SCH (09:36)
[2023-12-31 09:52] LABS: ANISOCYTOSIS 0; MACROCYTOSIS 0
[2023-12-31] MEDS: FLUTICASONE/UMECLIDIN/VILANTER(100-62.5-25 TRELEGY ELLIPTA) INAHLER IH SCH (11:38)
[2023-12-31] MEDS: LATANOPROST 0.005% OPHTH SOLN 2.5ML BOTTLE OU SCH (21:37)
[2023-12-31] MEDS ORDERED: ATORVASTATIN CA 40 MG TABLET (FP) PO SCH (22:00)
[2024-01-01 08:00] LABS: HEMATOCRIT 31.4 % (32.4-45.2); HEMOGLOBIN 10.4 GM/dL (10.7-15.3); MCH 27.3 pg (25.7-33.7); MCHC 33.1 g/dl (32.0-36.0); MEAN CELL VOLUME 82.4 fl (80-96); MEAN PLT VOLUME 6.4 fl (7.5-11.1); PLATELET COUNT 138 10^3/uL (134-434); RBC 3.82 M/mm3 (3.60-5.2); RDW 20.1 % (11.6-15.6); WHITE BLOOD COUNT 6.8 K/mm3 (4.0-10.0)
[2024-01-01 08:05] LABS: POTASSIUM 3.6 mmol/L (3.5-5.1)
[2024-01-01 08:12] LABS: CALCIUM 8.7 mg/dL (8.5-10.1)
[2024-01-01 08:13] LABS: ALBUMIN 2.6 g/dl (3.4-5.0); BLOOD UREA NITROGEN 26.1 mg/dL (7-18); MAGNESIUM 1.5 mg/dL (1.8-2.4)
[2024-01-01 08:14] LABS: CREATININE 0.8 mg/dL (0.55-1.3)
[2024-01-01 08:15] LABS: BILIRUBIN,TOTAL 0.7 mg/dL (0.2-1); TOT PROT 5.4 g/dl (6.4-8.2)
[2024-01-01 08:36] LABS: HEPATITIS B SURFACE AG MATERN NON-REACTIVE (NONREACTIVE)
[2024-01-01 09:09] LABS: ANISOCYTOSIS 1+; MACROCYTOSIS 0
[2024-01-01] MEDS: MAGNESIUM SULF 50% (8.12 MEQ/2 ML-1 GM VIAL) IVPB SCH (16:58)
[2024-01-01] MEDS: LATANOPROST 0.005% OPHTH SOLN 2.5ML BOTTLE OU SCH (21:01)
[2024-01-02] MEDS ORDERED: AZITHROMYCIN 250 MG TABLET PO SCH (10:00)
[2024-01-02 10:10] LABS: HEMATOCRIT 31.7 % (32.4-45.2); HEMOGLOBIN 10.7 GM/dL (10.7-15.3); MCH 27.7 pg (25.7-33.7); MCHC 33.8 g/dl (32.0-36.0); MEAN CELL VOLUME 82.1 fl (80-96); MEAN PLT VOLUME 6.6 fl (7.5-11.1); PLATELET COUNT 140 10^3/uL (134-434); RBC 3.86 M/mm3 (3.60-5.2); RDW 20.2 % (11.6-15.6); WHITE BLOOD COUNT 6.9 K/mm3 (4.0-10.0)
[2024-01-02 10:22] LABS: POTASSIUM 3.5 mmol/L (3.5-5.1)
[2024-01-02 10:26] LABS: CALCIUM 9.1 mg/dL (8.5-10.1)
[2024-01-02 10:27] LABS: ALBUMIN 2.6 g/dl (3.4-5.0); BLOOD UREA NITROGEN 25.8 mg/dL (7-18); MAGNESIUM 2.6 mg/dL (1.8-2.4)
[2024-01-02 10:32] LABS: BILIRUBIN,TOTAL 0.9 mg/dL (0.2-1); TOT PROT 5.7 g/dl (6.4-8.2)
[2024-01-02 10:33] LABS: CREATININE 0.7 mg/dL (0.55-1.3)
[2024-01-02] MEDS: ASPIRIN COATED 81 MG TABLET.EC PO SCH (11:17)
[2024-01-02] MEDS: CEFTRIAXONE 1 GM in DEXTROSE 5%-WATER - 50 ML IVPB SCH (11:17)
[2024-01-02] MEDS: VALSARTAN 40 MG TABLET PO SCH (11:18)
[2024-01-02] MEDS: AZITHROMYCIN 250 MG TABLET PO SCH (11:18)
[2024-01-02] MEDS: FLUTICASONE/UMECLIDIN/VILANTER(100-62.5-25 TRELEGY ELLIPTA) INAHLER IH SCH (11:19)
[2024-01-02 11:27] LABS: ANISOCYTOSIS 1+; MACROCYTOSIS 0
[2024-01-02] MEDS: ALBUTEROL SO4 2.5/IPRATROPIUM 0.5 INH SOL 3 ML VIAL.NEB. NEB SCH (16:21)
[2024-01-03] MEDS: IBUPROFEN 400 MG TABLET (FP) PO ONE (00:45)
[2024-01-03 08:01] LABS: HEMATOCRIT 32.1 % (32.4-45.2); HEMOGLOBIN 10.5 GM/dL (10.7-15.3); MCH 27.1 pg (25.7-33.7); MCHC 32.6 g/dl (32.0-36.0); MEAN CELL VOLUME 82.9 fl (80-96); MEAN PLT VOLUME 6.6 fl (7.5-11.1); PLATELET COUNT 143 10^3/uL (134-434); RBC 3.87 M/mm3 (3.60-5.2); RDW 20.3 % (11.6-15.6); WHITE BLOOD COUNT 6.3 K/mm3 (4.0-10.0)
[2024-01-03 08:18] LABS: POTASSIUM 3.5 mmol/L (3.5-5.1)
[2024-01-03 08:29] LABS: ALBUMIN 2.6 g/dl (3.4-5.0); CALCIUM 9.1 mg/dL (8.5-10.1); CREATININE 0.8 mg/dL (0.55-1.3)
[2024-01-03 08:30] LABS: BLOOD UREA NITROGEN 28.2 mg/dL (7-18); TOT PROT 5.7 g/dl (6.4-8.2)
[2024-01-03 08:31] LABS: BILIRUBIN,TOTAL 0.8 mg/dL (0.2-1)
[2024-01-03 08:37] LABS: GAMMA GLUTAMYL TRANSPEPTIDASE 2379 U/L (5-85)
[2024-01-03] MEDS: PANTOPRAZOLE 20 MG TABLET PO SCH (11:00)
[2024-01-03] MEDS: ENOXAPARIN NA (PORCINE) 40 MG/0.4 ML DISP.SYRIN SQ SCH (11:01)
[2024-01-03] MEDS: CEFEPIME 2 GM in DEXTROSE 5%-WATER 100 ML IVPB SCH (13:53)
[2024-01-03] MEDS ORDERED: CEFEPIME HCL 2 GM VIAL (RESTRICTED TO ID) IVPB SCH (14:00)
[2024-01-03 14:52] LABS: ARTERIAL BLD GAS O2 SATURATION 96.1 % (95-98); ARTERIAL BLOOD GAS BASE EXCESS -1.5 mmol/L (-2-2); ARTERIAL BLOOD GAS PO2 77.5 mmHg (80-100); ARTERIAL BLOOD GAS pH 7.447 (7.350-7.450)
[2024-01-03 14:53] LABS: ALLENS TEST POSITIVE
[2024-01-03] MEDS: methylPREDNISolone NA SUCC 40 MG/1 ML VIAL IVPUSH SCH (14:56)
[2024-01-03 17:16] LABS: EPI CELLS >36 /uL (0-25.1); HYALINE CASTS 5 /uL (0-3.1); URINE APPEARANCE CLOUDY; URINE BACTERIA 15 /uL (0-1359); URINE BILIRUBIN NEGATIVE (NEGATIVE); URINE COLOR YELLOW; URINE GLUCOSE (UA) NEGATIVE (NEGATIVE); URINE KETONE NEGATIVE (NEGATIVE); URINE LEUK ESTERASE NEGATIVE (NEGATIVE); URINE NITRITE NEGATIVE (NEGATIVE); URINE PROTEIN 1+ (NEGATIVE); URINE RBC 24 /uL (0-23.9); URINE UROBILINOGEN 0.2 mg/dL (0.2-1.0); URINE WBC 43 /uL (0-25.8)
[2024-01-03] MEDS: PIPERACILLIN/TAZOB 3.375 GM 3.375 GM in DEXTROSE 5%-WATER - 50 ML IVPB SCH (17:49)
[2024-01-03] MEDS ORDERED: KETOROLAC TROMETHAMINE 15 MG/ML VIAL IVPUSH ONE (18:16)
[2024-01-03] MEDS: KETOROLAC TROMETHAMINE 15 MG/ML VIAL IVPUSH ONE (18:24)
[2024-01-03] MEDS: CEFEPIME HCL 2 GM VIAL (RESTRICTED TO ID) IVPB SCH (19:28)
[2024-01-04 08:36] LABS: HEMATOCRIT 29.3 % (32.4-45.2); HEMOGLOBIN 9.8 GM/dL (10.7-15.3); MCH 27.6 pg (25.7-33.7); MCHC 33.6 g/dl (32.0-36.0); MEAN CELL VOLUME 82.2 fl (80-96); MEAN PLT VOLUME 6.8 fl (7.5-11.1); PLATELET COUNT 131 10^3/uL (134-434); RBC 3.56 M/mm3 (3.60-5.2); RDW 20.5 % (11.6-15.6); WHITE BLOOD COUNT 6.1 K/mm3 (4.0-10.0)
[2024-01-04 08:57] LABS: POTASSIUM 3.4 mmol/L (3.5-5.1)
[2024-01-04 09:19] LABS: ALBUMIN 2.5 g/dl (3.4-5.0); BLOOD UREA NITROGEN 28.8 mg/dL (7-18); CALCIUM 9.3 mg/dL (8.5-10.1)
[2024-01-04 09:20] LABS: CREATININE 0.9 mg/dL (0.55-1.3)
[2024-01-04 09:21] LABS: TOT PROT 5.6 g/dl (6.4-8.2)
[2024-01-04] MEDS: POTASSIUM CHLORIDE ORAL LIQUID 20 MEQ/15 ML PO ONE (10:00)
[2024-01-04 10:36] LABS: ANISOCYTOSIS 1+
[2024-01-04] MEDS: LIDOCAINE 5% TOPICAL PATCH TP SCH (12:06)
[2024-01-04] MEDS: LIDOCAINE PATCH REMOVAL MC SCH (21:45)
[2024-01-05] MEDS: methylPREDNISolone NA SUCC 40 MG/1 ML VIAL IVPUSH SCH ×2 (09:35→22:23)
[2024-01-05] MEDS ORDERED: guaiFENesin 200 MG/10 ML 10 ML UNIT-DOSE CUPS PO PRN (10:30)
[2024-01-05 11:58] LABS: HEMATOCRIT 27.5 % (32.4-45.2); HEMOGLOBIN 9.3 GM/dL (10.7-15.3); MCH 27.8 pg (25.7-33.7); MCHC 33.9 g/dl (32.0-36.0); MEAN CELL VOLUME 82.2 fl (80-96); MEAN PLT VOLUME 6.8 fl (7.5-11.1); PLATELET COUNT 126 10^3/uL (134-434); RBC 3.34 M/mm3 (3.60-5.2); RDW 20.7 % (11.6-15.6); WHITE BLOOD COUNT 6.3 K/mm3 (4.0-10.0)
[2024-01-05 12:21] LABS: POTASSIUM 3.3 mmol/L (3.5-5.1)
[2024-01-05 12:25] LABS: ALBUMIN 2.4 g/dl (3.4-5.0); BLOOD UREA NITROGEN 32.5 mg/dL (7-18); CALCIUM 9.2 mg/dL (8.5-10.1)
[2024-01-05 12:26] LABS: MAGNESIUM 1.8 mg/dL (1.8-2.4)
[2024-01-05 12:29] LABS: TOT PROT 5.5 g/dl (6.4-8.2)
[2024-01-05] MEDS: POTASSIUM CHLORIDE ORAL LIQUID 20 MEQ/15 ML PO ONE (13:19)
[2024-01-05] MEDS: KCL 10 MEQ IVPB 10 MEQ/100 ML INFUS.BAG IVPB SCH (15:37)
[2024-01-05] MEDS: traMADol HCL 50 MG TABLET PO PRN (15:39)
[2024-01-05] MEDS: dilTIAZem HCL 50 MG/10 ML - 10 ML VIAL IVPUSH ONE (15:42)
[2024-01-05] MEDS: dilTIAZem HCL 25 MG/5 ML - 5 ML VIAL IVPUSH ONE (15:51)
[2024-01-05] MEDS: NYSTATIN 500,000 UNITS/5 ML SUSPENSION PO SCH (18:03)
[2024-01-05] MEDS: ALBUTEROL SO4 2.5/IPRATROPIUM 0.5 INH SOL 3 ML VIAL.NEB. NEB SCH (20:35)
[2024-01-05] MEDS ORDERED: methylPREDNISolone NA SUCC 40 MG/1 ML VIAL IVPUSH SCH ×2 (22:00)
[2024-01-05] MEDS: LATANOPROST 0.005% OPHTH SOLN 2.5ML BOTTLE OU SCH (22:23)
[2024-01-05] MEDS: LIDOCAINE PATCH REMOVAL MC SCH (22:24)
[2024-01-06] MEDS: PIPERACILLIN/TAZOB 3.375 GM 3.375 GM in DEXTROSE 5%-WATER - 50 ML IVPB SCH (02:01)
[2024-01-06 07:14] LABS: HEMATOCRIT 29.5 % (32.4-45.2); HEMOGLOBIN 9.9 GM/dL (10.7-15.3); MCH 27.8 pg (25.7-33.7); MCHC 33.4 g/dl (32.0-36.0); MEAN CELL VOLUME 83.3 fl (80-96); MEAN PLT VOLUME 6.8 fl (7.5-11.1); PLATELET COUNT 142 10^3/uL (134-434); RBC 3.54 M/mm3 (3.60-5.2); RDW 21.4 % (11.6-15.6); WHITE BLOOD COUNT 7.9 K/mm3 (4.0-10.0)
[2024-01-06 07:35] LABS: POTASSIUM 3.8 mmol/L (3.5-5.1)
[2024-01-06 07:38] LABS: BLOOD UREA NITROGEN 35.3 mg/dL (7-18); MAGNESIUM 1.8 mg/dL (1.8-2.4)
[2024-01-06 07:41] LABS: CREATININE 1.1 mg/dL (0.55-1.3)
[2024-01-06 08:36] LABS: ALBUMIN 2.4 g/dl (3.4-5.0)
[2024-01-06 08:40] LABS: TOT PROT 5.8 g/dl (6.4-8.2)
[2024-01-06 08:41] LABS: BILIRUBIN,TOTAL 1.1 mg/dL (0.2-1)
[2024-01-06 08:49] LABS: BILIRUBIN,DIRECT 0.8 mg/dL (0.0-0.2)
[2024-01-06] MEDS: PANTOPRAZOLE 20 MG TABLET PO SCH (11:03)
[2024-01-06] MEDS: VALSARTAN 40 MG TABLET PO SCH (11:03)
[2024-01-06] MEDS: LIDOCAINE 5% TOPICAL PATCH TP SCH (11:04)
[2024-01-06] MEDS: ASPIRIN COATED 81 MG TABLET.EC PO SCH (11:04)
[2024-01-06] MEDS: FUROSEMIDE 40 MG/4 ML INJECTABLE VIAL IVPUSH ONE (11:04)
[2024-01-06] MEDS: ENOXAPARIN NA (PORCINE) 40 MG/0.4 ML DISP.SYRIN SQ SCH (11:04)
[2024-01-06] MEDS: FLUTICASONE/UMECLIDIN/VILANTER(100-62.5-25 TRELEGY ELLIPTA) INAHLER IH SCH (11:05)
[2024-01-06] MEDS ORDERED: ALBUTEROL SO4 0.083% IH SOL 2.5 MG/3 ML VIAL.NEB. NEB PRN (11:30)
[2024-01-06] MEDS: ALBUTEROL SO4 0.083% IH SOL 2.5 MG/3 ML VIAL.NEB. NEB SCH ×2 (12:23→16:40)
[2024-01-06] MEDS: ACETYLCYSTEINE 20% 200MG/ML 4 ML VIAL *FOR ORAL / INH USE ONLY NEB SCH (12:24)
[2024-01-07 07:10] LABS: HEMATOCRIT 27.3 % (32.4-45.2); HEMOGLOBIN 9.3 GM/dL (10.7-15.3); MCH 28.3 pg (25.7-33.7); MCHC 34.2 g/dl (32.0-36.0); MEAN CELL VOLUME 82.6 fl (80-96); MEAN PLT VOLUME 6.8 fl (7.5-11.1); PLATELET COUNT 109 10^3/uL (134-434); RBC 3.31 M/mm3 (3.60-5.2); RDW 20.7 % (11.6-15.6); WHITE BLOOD COUNT 5.9 K/mm3 (4.0-10.0)
[2024-01-07 07:29] LABS: CHLORIDE 108 mmol/L (98-107); SODIUM 142 mmol/L (136-145)
[2024-01-07 07:58] LABS: ALBUMIN 2.3 g/dl (3.4-5.0); BLOOD UREA NITROGEN 38.5 mg/dL (7-18); CALCIUM 9.4 mg/dL (8.5-10.1); CO2 24 mmol/L (21-32); GLUCOSE,RANDOM 118 mg/dL (74-106)
[2024-01-07 08:01] LABS: SGOT/AST 179 U/L (15-37); SGPT/ALT 215 U/L (13-61)
[2024-01-07 08:03] LABS: BILIRUBIN,TOTAL 1.1 mg/dL (0.2-1); TOT PROT 5.4 g/dl (6.4-8.2)
[2024-01-07 08:04] LABS: ALK PHOS 562 U/L (45-117)
[2024-01-07 08:07] LABS: ANION GAP 10 mmol/L (4-13); POTASSIUM 2.9 mmol/L (3.5-5.1)
[2024-01-07] MEDS: POTASSIUM CHLORIDE ORAL LIQUID 20 MEQ/15 ML PO ONE (11:08)
[2024-01-07] MEDS: ALBUTEROL SO4 0.083% IH SOL 2.5 MG/3 ML VIAL.NEB. NEB SCH (20:29)
[2024-01-07] MEDS: POTASSIUM CHLORIDE TABS 20 MEQ TABLET.ER (FP) PO ONE ×2 (22:46→22:47)
[2024-01-07] MEDS: ACETAMINOPHEN 325 MG TABLET (FP) PO PRN (22:57)
[2024-01-07 23:49] VITALS: BMI 22.8
[2024-01-08] MEDS: PANTOPRAZOLE 40 MG TABLET PO SCH (09:01)
[2024-01-08 10:13] LABS: HEMATOCRIT 27.2 % (32.4-45.2); HEMOGLOBIN 9.3 GM/dL (10.7-15.3); MCH 28.2 pg (25.7-33.7); MCHC 34.1 g/dl (32.0-36.0); MEAN CELL VOLUME 82.6 fl (80-96); MEAN PLT VOLUME 7.2 fl (7.5-11.1); RDW 20.5 % (11.6-15.6); WHITE BLOOD COUNT 6.6 K/mm3 (4.0-10.0)
[2024-01-08 10:40] LABS: POTASSIUM 3.9 mmol/L (3.5-5.1)
[2024-01-08 10:43] LABS: ALBUMIN 2.1 g/dl (3.4-5.0); BLOOD UREA NITROGEN 40.9 mg/dL (7-18)
[2024-01-08 10:47] LABS: BILIRUBIN,TOTAL 1.5 mg/dL (0.2-1); TOT PROT 5.6 g/dl (6.4-8.2)
[2024-01-08 11:09] LABS: ANISOCYTOSIS 3+; MACROCYTOSIS 0
[2024-01-08 11:13] LABS: PLATELET COUNT 90 10^3/uL (134-434)
[2024-01-08] MEDS ORDERED: ALBUTEROL SO4 2.5/IPRATROPIUM 0.5 INH SOL 3 ML VIAL.NEB. NEB SCH (12:00)
[2024-01-08] MEDS: POTASSIUM CHLORIDE ORAL LIQUID 20 MEQ/15 ML PO SCH (15:31)
[2024-01-08] MEDS: AMINO ACIDS/PROTEIN HYDROLYS 30 ML LIQUID.PKT PO SCH (18:52)
[2024-01-08 20:47] LABS: ALLENS TEST POSITIVE; ARTERIAL BLD GAS O2 SATURATION 96.5 % (95-98); ARTERIAL BLOOD GAS BASE EXCESS -6.7 mmol/L (-2-2); ARTERIAL BLOOD GAS PO2 93.7 mmHg (80-100)
[2024-01-08 20:48] LABS: VENT MODE S/T; VENT RATE 14
[2024-01-08] MEDS: ALBUTEROL SO4 2.5/IPRATROPIUM 0.5 INH SOL 3 ML VIAL.NEB. NEB SCH (22:02)
[2024-01-08] MEDS: FUROSEMIDE 40 MG/4 ML INJECTABLE VIAL IVPUSH ONE (22:07)
[2024-01-09 05:13] VITALS: TEMP 97.9
[2024-01-09 08:00] LABS: HEMATOCRIT 29.9 % (32.4-45.2); HEMOGLOBIN 10.1 GM/dL (10.7-15.3); MCH 28.4 pg (25.7-33.7); MCHC 33.7 g/dl (32.0-36.0); MEAN CELL VOLUME 84.3 fl (80-96); MEAN PLT VOLUME 7.5 fl (7.5-11.1); PLATELET COUNT 91 10^3/uL (134-434); RBC 3.54 M/mm3 (3.60-5.2); RDW 21.4 % (11.6-15.6); WHITE BLOOD COUNT 9.1 K/mm3 (4.0-10.0)
[2024-01-09 08:18] LABS: MAGNESIUM 1.9 mg/dL (1.8-2.4)
[2024-01-09 09:03] LABS: ALBUMIN 2.3 g/dl (3.4-5.0); BILIRUBIN,TOTAL 2.5 mg/dL (0.2-1); BLOOD UREA NITROGEN 53.3 mg/dL (7-18); CALCIUM 9.5 mg/dL (8.5-10.1); CREATININE 1.2 mg/dL (0.55-1.3); POTASSIUM 4.1 mmol/L (3.5-5.1); TOT PROT 5.9 g/dl (6.4-8.2)
[2024-01-09 09:46] VITALS: BP 165/86; RESP 26
[2024-01-09 09:53] LABS: ANISOCYTOSIS 2+; MACROCYTOSIS 0
[2024-01-09] MEDS: morphine CARPU-JECT 4 MG/1 ML DISP.SYRIN IVPUSH ONE (10:00)
[2024-01-09] MEDS: LACTATED RINGERS SOLUTION 1,000 ML/1,000 ML INFUS.BAG IV SCH (11:05)
[2024-01-09] MEDS ORDERED: ACETAMINOPHEN 1000 MG/100 ML BAG IVPB PRN ×2 (13:43→21:14)
[2024-01-09] MEDS ORDERED: VALSARTAN 40 MG TABLET PO SCH (14:05)
[2024-01-09] MEDS: PANTOPRAZOLE SODIUM 40 MG VIAL IVPUSH SCH (14:28)
[2024-01-09] MEDS ORDERED: ALBUTEROL SO4 0.083% IH SOL 2.5 MG/3 ML VIAL.NEB. NEB PRN (14:43)
[2024-01-09] MEDS ORDERED: LORazepam 2 MG/ML SDV VIAL IVPUSH PRN ×2 (14:44→21:14)
[2024-01-09] MEDS ORDERED: MORPHINE SULFATE/0.9% NACL/PF 100 MG/100 ML BAG IVPB SCH ×2 (15:00→21:14)
[2024-01-09] MEDS: SODIUM CHLORIDE 0.45% 1,000 ML IV SCH (16:45)
[2024-01-09 16:54] VITALS: PULSE 107
[2024-01-09] MEDS ORDERED: MORPHINE 100 MG/100 ML MG ONE (19:31)
== END 2024-01-09 20:00 | disposition expired | DRG 193 ==
LOC: JER 16:20 → JERBED 23:45 → J4W 12-31 03:13 → J5S 01-01 13:38 → J4W 01-05 14:11 → J8W 01-09 17:58
PROVIDERS: ADMIT Internal Medicine
DX: J18.9 Pneumonia, unspecified organism (principal); E43 Unspecified severe protein-calorie malnutrition; J96.01 Acute respiratory failure with hypoxia; J96.02 Acute respiratory failure with hypercapnia; S22.079A Unspecified fracture of T9-T10 vertebra, initial encounter for closed fracture; C34.90 Malignant neoplasm of unspecified part of unspecified bronchus or lung; C78.7 Secondary malignant neoplasm of liver and intrahepatic bile duct; C79.71 Secondary malignant neoplasm of right adrenal gland; C79.51 Secondary malignant neoplasm of bone; B37.0 Candidal stomatitis; N17.9 Acute kidney failure, unspecified; J98.11 Atelectasis; K76.0 Fatty (change of) liver, not elsewhere classified; E78.5 Hyperlipidemia, unspecified; R94.5 Abnormal results of liver function studies; S32.592D Other specified fracture of left pubis, subsequent encounter for fracture with routine healing; I25.10 Atherosclerotic heart disease of native coronary artery without angina pectoris; J84.10 Pulmonary fibrosis, unspecified; R68.3 Clubbing of fingers; I46.9 Cardiac arrest, cause unspecified; J44.9 Chronic obstructive pulmonary disease, unspecified; D50.9 Iron deficiency anemia, unspecified; D69.6 Thrombocytopenia, unspecified; E87.6 Hypokalemia; I25.2 Old myocardial infarction; H40.9 Unspecified glaucoma; E83.42 Hypomagnesemia; I10 Essential (primary) hypertension; D32.9 Benign neoplasm of meninges, unspecified; W18.30XA Fall on same level, unspecified, initial encounter; Y93.9 Activity, unspecified; Y92.099 Unspecified place in other non-institutional residence as the place of occurrence of the external cause; Y99.9 Unspecified external cause status; Z95.5 Presence of coronary angioplasty implant and graft; Z68.22 Body mass index [BMI] 22.0-22.9, adult
CPT/HCPCS: 36415; 36600; 70450-TC; 71045-TC-FY; 72125-TC; 72128-TC; 72170-TC-FY; 74177-TC; 80048; 80053; 80076; 81003; 82105; 82272; 82550; 82728; 82803; 82962; 82977; 83540; 83550; 83605; 83735; 84080; 84100; 84484; 85025; 85027; 85610; 85730; 86704; 86705; 86707; 86708; 86803; 86850; 86900; 86901; 87040; 87081; 87086; 87340; 87350; 87517; 87899; 87902; 93005; 93010; 94010; 94640; 94660; 94761; 97116-GP; 97161-GP; 99285-25; Q9967